=== PATIENT | female | born 1975 | race African-American/Black ===

== ENCOUNTER 2018-03-02 16:45 | Emergency (ER) | payer MEDICAID ==
[~2018-03-02] VITALS: Ht 167.6 cm; Wt 104.0 kg
[2018-03-02] MEDS ORDERED: METHYLPREDNISOLONE SOD SUCC 125 MG/2 ML VIAL IV STA (18:10)
[2018-03-02] MEDS ORDERED: IPRATROPIUM/ALBUTEROL 0.5-3(2.5)MG/3ML NEB HHN ONE (18:15)
[2018-03-02] MEDS ORDERED: ONDANSETRON HCL 4MG/2ML VIAL IV ONE (18:15)
[2018-03-02] MEDS ORDERED: AZITHROMYCIN 500 MG in DEXT 5% WATER 250 ML IV SCH (18:15)
[2018-03-02] MEDS ORDERED: MORPHINE SULFATE 4 MG/ML CPJ (NOT FOR IM USE) IV ONE (18:15)
[2018-03-02 18:33] LABS: HEMOGLOBIN. 15.1 g/dL (12.0-16.0); MEAN CORPUSCULAR HEMOGLOBIN 33.5 pg (28.0-32.0); MEAN CORPUSCULAR VOLUME 97.6 fL (81.0-99.0); MEAN PLATELET VOLUME 8.2 fl (7.4-10.4); PLATELET 233 x1000/uL (130-400); RED BLOOD CELL COUNT 4.51 mill/uL (4.2-5.4); RED CELL DISTRIBUTION WIDTH 13.2 % (11.6-14.6)
[2018-03-02 18:35] LABS: CHLORIDE 103 mEq/L (98-107)
[2018-03-02 18:36] LABS: PARTIAL THROMBOPLASTIN TIME 28.5 sec (23.4-31.0); PROTHROMBIN TIME 10.7 sec (9.4-11.6)
[2018-03-02 18:39] LABS: HCG SCREEN NEGATIVE
[2018-03-02 18:43] LABS: CREATINE KINASE 215 IU/L (26-192)
[2018-03-02] MEDS ORDERED: KCL 20MEQ/100ML PREMIX 100 ML IV ONE (18:45)
[2018-03-02 18:46] LABS: CREATINE KINASE MB FRACTION < 0.5 ng/mL (0.5-3.6)
[2018-03-02 19:32] LABS: PLATELET ESTIMATE NORMAL
[2018-03-02] MEDS ORDERED: METOCLOPRAMIDE HCL 10MG/2ML VIAL IV ONE (19:45)
[2018-03-02] MEDS ORDERED: MAGNESIUM/ALUMINUM HYDROXIDE/SIMETHICONE 30ML UDC PO ONE (21:15)
[2018-03-02] MEDS ORDERED: FAMOTIDINE 20MG/2ML VIAL IV ONE (21:15)
[2018-03-02] MEDS ORDERED: KETOROLAC 30MG/ML VIAL IV ONE (21:15)
[2018-03-02 22:58] VITALS: BP 151/85
== END 2018-03-02 23:01 | disposition home or self-care (01) ==
LOC: ER 16:45
DX: J45.909 Unspecified asthma, uncomplicated (principal); K29.70 Gastritis, unspecified, without bleeding; I10 Essential (primary) hypertension; Z98.890 Other specified postprocedural states
CPT/HCPCS: 36415; 71045; 80053; 82550; 82553; 83690; 83880; 84443; 84484; 84703; 85025; 85610; 85730; 87040; 87086; 93005; 96361; 96365; 96366; 96368; 96375; 99285; J0456; J1885; J2270; J2405; J2765; J2930; J3480; J3490; J7620; J7060